=== PATIENT | male | born 1985 | race Caucasian/White ===

== ENCOUNTER 2017-07-07 16:15 | Emergency (ER) | payer MEDICAID ==
--- NOTE | 2017-07-07 16:28 | EDPHY ---
H & P Time Seen by Provider: 07/07/17 16:26 HPI/ROS: Chief complaint. Shortness of breath HPI. 31-year-old male presents emergency department with multiple complaints. He developed some generalized abdominal pain and then fainted at work. He is dizzy. He has tingling around his mouth and both hands. He describes chest tightness. He says his throat feels tight. He feels like he can't catch his breath. He has right-sided neck pain after falling water skiing yesterday. His neck did not hurt until today. He has a history of peptic ulcer disease. He has been camping last few days and eating camp food he tells me. Similar symptoms previously. No fever, cough ROS Constitutional. no fever/chills, no weakness Eyes. no problems with vision ENT. Throat tightness Cardiovascular. Chest tightness Respiratory. Shortness of breath Abdominal. Abdominal pain with some nausea but no vomiting or diarrhea . no problems urinating MS. no calf pain/swelling, no neck/back pain, no joint pain Skin. no rash Lymph. no swollen glands Neuro. Tingling to lips and arms Past Medical/Surgical History: Peptic ulcer disease, anxiety Social History: Single, nonsmoker, no alcohol Smoking Status: Never smoked Physical Exam: General Appearance: Alert, agitated, well-developed male moderate distress. Vital signs significant for initial heart rate 123 and O2 saturation heart percent on room air Eyes: Pupils equal and round no pallor or injection. ENT, Mouth: Mucous membranes are moist. Respiratory: There are no retractions, lungs are clear to auscultation. Cardiovascular: Regular rate and rhythm. Gastrointestinal: Abdomen is soft and nontender, no masses, bowel sounds normal. Neurological: Awake and alert, sensory and motor exams grossly normal. Skin: Warm and dry, no rashes. Musculoskeletal: Neck is supple nontender. Extremities symmetrical, full range of motion. Psychiatric: Oriented x3. Anxious Constitutional: Initial Vital Signs Temperature (C) 36.7 C 07/07/17 16:16 Heart Rate 123 H 07/07/17 16:16 Respiratory Rate 28 H 07/07/17 16:16 Blood Pressure 152/93 H 07/07/17 16:16 O2 Sat (%) 100 07/07/17 16:16 O2 Delivery Mode Room Air Allergies/Adverse Reactions: No Known Allergies Allergy (Unverified 07/07/17 16:19) Home Medications: Medication Instructions Recorded LORazepam [Ativan] 1 mg PO Q6-8PRN PRN #10 tab 07/07/17 Medical Decision Making - Diagnostics EKG Interpretation: EKG interpreted by me shows sinus tachycardia with normal interval and axis. QRS is normal there is no significant ST elevation or depression. No arrhythmia. The rate is 118 Imaging Results: Imaging Impressions Abdomen X-Ray 07/07/17 16:36 Impression: Constipation. Chest X-Ray 07/07/17 16:36 Impression: Mild peribronchial thickening suggesting airways disease/bronchitis. Procedures: IV normal saline. Monitor. Ativan IV. Zofran IV. ED Course/Re-evaluation: Re-evaluation 6:20 p.m.. Patient is stable and improved. Heart rate currently 104 Patient and I discussed imaging and lab results. We discussed treatment plan including criteria for return importance of follow-up and further evaluation. He expresses understanding and agreement Differential Diagnosis: This is likely anxiety. He did have abdominal pain does have a history of peptic ulcer disease. His lipase is normal. X-ray shows no evidence of free air or air-fluid levels as I considered perforated hollow viscus. He does show constipation. - Data Points Laboratory Results: Laboratory Results 07/07/17 16:30 07/07/17 16:30 07/07/17 07/07/17 16:30 16:30 WBC 6.47 10^3/uL 10^3/uL (3.80-9.50) RBC 5.13 10^6/uL 10^6/uL (4.40-6.38) Hgb 17.1 g/dL g/dL (13.7-17.5) Hct 49.0 % % (40.0-51.0) MCV 95.5 fL fL (81.5-99.8) MCH 33.3 pg pg (27.9-34.1) MCHC 34.9 g/dL g/dL (32.4-36.7) RDW 12.9 % % (11.5-15.2) Plt Count 211 10^3/uL 10^3/uL (150-400) MPV 10.2 fL fL (8.7-11.7) Neut % (Auto) 47.0 % % (39.3-74.2) Lymph % (Auto) 41.9 % % (15.0-45.0) [place] % (Auto) 9.4 % % (4.5-13.0) Eos % (Auto) 0.6 % % (0.6-7.6) Baso % (Auto) 0.9 % % (0.3-1.7) Nucleat RBC Rel Count 0.0 % % (0.0-0.2) Absolute Neuts (auto) 3.04 10^3/uL 10^3/uL (1.70-6.50) Absolute Lymphs (auto) 2.71 10^3/uL 10^3/uL (1.00-3.00) Absolute Monos (auto) 0.61 10^3/uL 10^3/uL (0.30-0.80) Absolute Eos (auto) 0.04 10^3/uL 10^3/uL (0.03-0.40) Absolute Basos (auto) 0.06 10^3/uL 10^3/uL (0.02-0.10) Absolute Nucleated RBC 0.00 10^3/uL 10^3/uL (0-0.01) Immature Gran % 0.2 % % (0.0-1.1) Immature Gran # 0.01 10^3/uL 10^3/uL (0.00-0.10) Sodium 140 mEq/L mEq/L (134-144) Potassium 3.4 mEq/L L mEq/L (3.5-5.2) Chloride 103 mEq/L mEq/L (97-110) Carbon Dioxide 20 mEq/l L mEq/l (22-31) Anion Gap 17 mEq/L H mEq/L (8-16) BUN 10 mg/dL mg/dL (7-23) Creatinine 0.8 mg/dL mg/dL (0.7-1.3) Estimated GFR > 60 Glucose 112 mg/dL H mg/dL (70-100) Calcium 10.1 mg/dL mg/dL (8.5-10.4) Troponin I < 0.012 ng/mL ng/mL (0.000-0.034) Lipase 140 IU/L IU/L (23-300) Medications Given: Discontinued Medications Al Hydroxide/Mg Hydroxide (Maalox Susp) 30 ml PO ONCE ONE Stop: 07/07/17 16:53 Last Admin: 07/07/17 16:58 Dose: 30 ml Hyoscyamine Sulfate (Levsin, Hyomax-Sl) 0.25 mg PO ONCE ONE Stop: 07/07/17 16:53 Last Admin: 07/07/17 16:58 Dose: 0.25 mg Sodium Chloride (Ns) 1,000 mls @ 0 mls/hr IV EDNOW ONE; Wide Open PRN Reason: Protocol Stop: 07/07/17 16:36 Last Admin: 07/07/17 16:46 Dose: 1,000 mls Sodium Chloride (Ns) 1,000 mls @ 0 mls/hr IV ONCE ONE; Wide Open PRN Reason: Protocol Stop: 07/07/17 18:00 Last Admin: 07/07/17 18:10 Dose: 1,000 mls Lidocaine (Lidocaine 2% Viscous) 15 ml PO ONCE ONE Stop: 07/07/17 16:53 Last Admin: 07/07/17 16:58 Dose: 15 ml Lorazepam (Ativan Injection) 1 mg IVP EDNOW ONE Stop: 07/07/17 16:36 Last Admin: 07/07/17 16:46 Dose: 1 mg Ondansetron HCl (Zofran) 4 mg IVP EDNOW ONE Stop: 07/07/17 16:36 Last Admin: 07/07/17 16:46 Dose: 4 mg Departure - Departure Disposition: Home, Routine, Self-Care Clinical Impression: Anxiety Abdominal pain Qualifiers: Abdominal location: generalized Qualified Code(s): R10.84 - Generalized abdominal pain Condition: Good Instructions: Anxiety (ED), Constipation (ED), High Fiber Diet (ED) Additional Instructions: Increased fluids including fruit and prune juice. Milk of magnesia or other liquid antacid at bedtime. Continue omeprazole or Prilosec which can by the grocery store without prescription. Return for worsening symptoms. Ativan if needed for anxiety I will give you the name of Gastroenterology for follow-up. Return for worsening symptoms. Recheck in 2 days if not improving Referrals: NONE *PRIMARY CARE P,. [Primary Care Provider] - As per Instructions Johnnie Win MD [Medical Doctor] - As per Instructions Abi Hawkins MD [[facility] – [place], [place] Primary Care Provider] - As per Instructions Prescriptions: LORazepam [Ativan] 1 mg PO Q6-8PRN PRN #10 tab PRN Reason: Anxiety
[2017-07-07] MEDS ORDERED: ONDANSETRON 4 MG/2 ML VIAL IVP ONE (16:35)
[2017-07-07] MEDS ORDERED: NS 1,000 ML IV ONE ×2 (16:35→17:59)
[2017-07-07] MEDS ORDERED: LORazepam 2 MG/ML INJ IVP ONE (16:35)
[2017-07-07 16:43] LABS: % IMMATURE GRANULYOCYTES 0.2 % (0.0-1.1); ABSOLUTE IMMATURE GRANULOCYTES 0.01 10^3/uL (0.00-0.10); ADD DIFF? NO; ADD MORPH? NO; ADD SCAN? NO; ATYPICAL LYMPHOCYTE FLAG 0 (0-99); FRAGMENT RBC FLAG 0 (0-99); HEMOGLOBIN 17.1 g/dL (13.7-17.5); LEFT SHIFT FLG 0 (0-99); LIPEMIA HEMOLYSIS FLAG 90 (0-99); MEAN CELL HEMOGLOBIN 33.3 pg (27.9-34.1); MEAN CELL HEMOGLOBIN CONCENTR. 34.9 g/dL (32.4-36.7); MEAN CELL VOLUME 95.5 fL (81.5-99.8); MEAN PLATELET VOLUME 10.2 fL (8.7-11.7); PLATELET CLUMPS FLAG 0 (0-99); PLATELET COUNT 211 10^3/uL (150-400); RED BLOOD CELL COUNT 5.13 10^6/uL (4.40-6.38); RED CELL DISTRIBUTION WIDTH 12.9 % (11.5-15.2)
--- NOTE | 2017-07-07 16:51 | CPEKG ---
Heart Rate: 118 RR Interval: 508 P-R Interval: 148 QRSD Interval: 104 QT Interval: 324 QTC Interval: 455 P Stanley: 77 QRS Stanley: 94 T Wave Stanley: 26 EKG Severity - BORDERLINE ECG - EKG Impression: SINUS TACHYCARDIA EKG Impression: BORDERLINE RIGHT AXIS DEVIATION EKG Impression: INFERIOR Q WAVES, PROBABLY NORMAL VARIATION Electronically Signed By: Demetris Desouza 07-Jul-2017 17:06:37
[2017-07-07] MEDS ORDERED: MAG HYDROX/AL HYDROX/SIMETH 30 ML UDCUP PO ONE (16:52)
[2017-07-07] MEDS ORDERED: HYOSCYAMINE SULFATE 0.125 MG TAB PO ONE (16:52)
[2017-07-07] MEDS ORDERED: LIDOCAINE 2% VISCOUS 15 ML UDCUP PO ONE (16:52)
[2017-07-07 17:13] LABS: ANION GAP 17 mEq/L (8-16); CALCIUM 10.1 mg/dL (8.5-10.4); CARBON DIOXIDE 20 mEq/l (22-31); CHLORIDE 103 mEq/L (97-110); CREATININE 0.8 mg/dL (0.7-1.3); GLOMERULAR FILTRATION RATE > 60; GLUCOSE 112 mg/dL (70-100); POTASSIUM 3.4 mEq/L (3.5-5.2); SODIUM 140 mEq/L (134-144)
[2017-07-07 17:25] LABS: TROPONIN I < 0.012 ng/mL (0.000-0.034)
[2017-07-07 19:07] VITALS: BP 150/90; PULSE 102; RESP 16; TEMP 98.6; O2SAT 96
== END 2017-07-07 19:06 | disposition home or self-care (01) ==
PROC: 3E0337Z Introduction of Electrolytic and Water Balance Substance into Peripheral Vein, Percutaneous Approach (ICD-10-PCS; principal; 2017-07-07)
DX: R10.84 Generalized abdominal pain (principal); F41.9 Anxiety disorder, unspecified; E86.9 Volume depletion, unspecified
CPT/HCPCS: 96374; J2060; J2405